=== PATIENT | male | born 1995 | race American Indian/Alaskan Native ===

== ENCOUNTER 2020-08-19 17:29 | Emergency (ER) | payer BC ==
--- NOTE | 2020-08-19 19:35 | XRay Report ---
Left hand-3 views INDICATION: lac. COMPARISON: None. IMPRESSION: Irregular laceration involving the little finger with saw blade injury resulting in a tr ansected fracture line involving the ulnar aspect of the base of the little finger distal phalanx bas e and extending into the head/neck to the level of the mid shaft of the middle phalanx. Again in tota l the sawblade cut injury extends to the mid diaphysis of the middle phalanx. There is considerable surrounding soft tissue swelling with no radiopaque foreign body identified. The distal phalanx is d isplaced volarly and radially. No other injury identified. Signer Name: Andrea Everett MD Signed: 08/19/2020 7:31 PM Workstation Name: [id number]
[2020-08-19] MEDS ORDERED: LIDOCAINE-MPF (1%) 10 MG/1 ML VIAL 5 ML INFILTRATI ONE (19:48)
[2020-08-19] MEDS ORDERED: HYDROcodone/ACETAMINOPHEN 5-325 MG TAB PO ONE (19:48)
[2020-08-19] MEDS ORDERED: SODIUM CHLORIDE 0.9% IRR 500 ML BOTTLE IR ONE (19:48)
[2020-08-19] MEDS ORDERED: BUPIVACAINE/PF (0.5%) 5 MG/1 ML 10 ML VIAL INFILTRATI ONE (19:49)
[2020-08-19] MEDS ORDERED: DIPHtheria,PERTUSSIS(ACELL),TETANUS VACCINE/PF 0.5 ML VIAL IM ONE (19:49)
[2020-08-19 20:37] VITALS: BP 150/79
--- NOTE | 2020-08-19 20:40 | Emergency Department Report ---
<DESHAWN ALBRECHT - Last Filed: 08/19/20 23:21> ED Upper Extremity Inj HPI - General Chief Complaint: Wound/Laceration Stated Complaint: FINGER LAC Time Seen by Provider: 08/19/20 19:08 Source: patient Mode of arrival: Ambulatory Limitations: No Limitations - History of Present Illness Initial Comments: Patient is a 24-year-old male presents emergency room with complaints of a laceration to the left pinky that occurred around 4 PM today. He states that he was at work using a saw when he accidentally cut himself. He states that he has pain in the finger. He states that he does still have sensation. He states initially there was significant bleeding but has since resolved. He denies ever injuring this finger in the past. He denies any numbness or weakness. No past medical history. Allergy to peanut and pet dander. He is unsure of his last tetanus immunization. - Related Data Previous Rx's Medication Instructions Recorded Last Taken Type HYDROcodone/APAP 5-325 [[place] 1 each PO Q6HR PRN #12 tablet 08/19/20 Unknown Rx 5/325] Ibuprofen [Motrin 600 MG tab] 600 mg PO Q8H PRN #20 tablet 08/19/20 Unknown Rx cephALEXin [Keflex] 500 mg PO QID 7 Days #28 capsule 08/19/20 Unknown Rx Allergies Allergy/AdvReac Type Severity Reaction Status Date / Time peanut Allergy Anaphylaxis Verified 08/19/20 19:01 pet dander Allergy Hives Uncoded 08/19/20 19:01 ED Review of Systems Comment: All other systems reviewed and negative ED Past Medical Hx - Past Medical History Previous Medical History?: No - Surgical History Past Surgical History?: No - Social History Smoking Status: Never Smoker Substance Use Type: None - Medications Home Medications: Home Medications Medication Instructions Recorded Confirmed Last Taken Type HYDROcodone/APAP 5-325 [[place] 1 each PO Q6HR PRN #12 tablet 08/19/20 Unknown Rx 5/325] Ibuprofen [Motrin 600 MG tab] 600 mg PO Q8H PRN #20 tablet 08/19/20 Unknown Rx cephALEXin [Keflex] 500 mg PO QID 7 Days #28 capsule 08/19/20 Unknown Rx ED Physical Exam - General Limitations: No Limitations General appearance: alert, in no apparent distress - Head Head exam: Present: atraumatic, normocephalic - Eye Eye exam: Present: normal appearance - ENT ENT exam: Present: mucous membranes moist - Respiratory Respiratory exam: Absent: respiratory distress, accessory muscle use - Back Exam Back exam: Present: other (3 cm deep laceration present to the dorsal surface of the left pinky, there are bony fragments visualized, the DIP is in the flexed position, otherwise patient has full ROM of the rest of the digit, no active bleeding, brisk cap refill, sensation intact, no obvious foreign body) - Neurological Exam Neurological exam: Present: alert, oriented X3 - Psychiatric Psychiatric exam: Present: normal affect, normal mood - Skin Skin exam: Present: warm, dry - Laceration /Wound Repair Left Dorsal Finger Wound Location: upper extremity (dorsal surface left pinky) Wound Length (cm): 4 Wound's Depth, Shape: linear Wound Explored: no foreign body removed Irrigated w/ Saline (ccs): 500 Betadine Prep?: Yes Anesthesia: 1% Lidocaine, 0.5% Sensorcaine Volume Anesthetic (ccs): 8 (4 cc of 1%lidocaine without epi, 4 cc of 0.5% bupivacaine) Wound Debrided: extensive Wound Repaired With: sutures Suture Size/Type: 3:0, proline Number of Sutures: 12 Layer Closure?: No Sterile Dressing Applied?: Yes Progress: Wound irrigated with 500 mL of saline, thoroughly scrubbed with Betadine, no foreign bodies visualized, there are bony fragments present, digital block performed using a 50-50 mixture of 1% lidocaine without epinephrine and 0.5% bupivacaine, for a total of 8 cc, aspirated to make sure not in the vessel, Betadine prep again, sterile drapes applied, sterile gloves worn, 3-0 Prolene used for skin closure, 12 sutures placed, attempted to straighten into anatomical position, patient placed in finger splint by hospital account manager in extension and remained neurovascularly intact, sterile dressing applied by hospital account manager ED Medical Decision Making - Radiology Data Radiology results: report reviewed Ordering Physician: DARRYL SHUKLA Date of Service: 08/19/20 Procedure(s): XR finger(s) 2+V LT Accession Number(s): [id number] cc: DARRYL SHUKLA Fluoro Time In Minutes: Left hand-3 views INDICATION: lac. COMPARISON: None. IMPRESSION: Irregular laceration involving the little finger with saw blade injury resulting in a transected fracture line involving the ulnar aspect of the base of the little finger distal phalanx base and extending into the head/neck to the level of the mid shaft of the middle phalanx. Again in total the sawblade cut injury extends to the mid diaphysis of the middle phalanx. There is considerable surrounding soft tissue swelling with no radiopaque foreign body identified. The distal phalanx is displaced volarly and radially. No other injury identified. Signer Name: Andrea Everett MD Signed: 08/19/2020 7:31 PM Workstation Name: [id number] Transcribed By: MACKENZIE Dictated By: Andrea Everett MD Electronically Authenticated By: Andrea Everett MD Signed Date/Time: 08/19/201930 DD/ 28 TD/TT: Print Cancel ED Disposition Clinical Impression: Open fracture of phalanx of left little finger Qualifiers: Encounter type: initial encounter Phalanx: unspecified phalanx Fracture alignment: displaced Qualified Code(s): S62.607B - Fracture of unspecified phalanx of left little finger, initial encounter for open fracture Disposition: DC-01 TO HOME OR SELFCARE Is pt being admited?: No Does the pt Need Aspirin: No Condition: Stable Instructions: Finger Fracture, Adult Additional Instructions: Please keep area clean, dry, covered. Please do not remove splint. Please follow-up with a hand surgeon. It is very important that you follow-up with a hand surgeon to prevent permanent mobility issues of the left pinky. Please take medication as prescribed. Please take antibiotics to completion. Please do not drive or operate machinery while taking pain medication. Return to emergency room for any new or worsening symptoms. Sutures need to be removed in 10 to 14 days. Prescriptions: cephALEXin [Keflex] 500 mg PO QID 7 Days #28 capsule Ibuprofen [Motrin 600 MG tab] 600 mg PO Q8H PRN #20 tablet PRN Reason: Pain, Moderate (4-6) HYDROcodone/APAP 5-325 [[place] 5/325] 1 each PO Q6HR PRN #12 tablet PRN Reason: Pain , Severe (7-10) Referrals: MELISSA MENDIOLA MD [Referring] - 2-3 Days PRIMARY CAREMD [Primary Care Provider] - 2-3 Days Time of Disposition: 23:27 Print Language: FAROESE <IMEROKSANA C - Last Filed: 08/20/20 00:45> ED Review of Systems ROS: Stated complaint: FINGER LAC Other details as noted in HPI ED Course Vital Signs 08/19/20 08/20/20 19:00 00:10 Temperature 98.1 F Pulse Rate 90 83 Respiratory 16 16 Rate Blood Pressure 150/79 O2 Sat by Pulse 100 100 Oximetry ED Medical Decision Making - Medical Decision Making I did exam finger after wound repair. stressed importance of hand surgeon f/u for possible surgery and possibility of tendon involvement and to monitor for signs of infection (explained). Finger splinted prior to d/c Critical care attestation.: If time is entered above; I have spent that time in minutes in the direct care of this critically ill patient, excluding procedure time.
== END 2020-08-20 00:10 | disposition home or self-care (01) ==
LOC: ED 17:29
DX: S62.607A Fracture of unspecified phalanx of left little finger, initial encounter for closed fracture (principal); Z79.899 Other long term (current) drug therapy; W26.9XXA Contact with unspecified sharp object(s), initial encounter; Y93.89 Activity, other specified; Y92.89 Other specified places as the place of occurrence of the external cause; Y99.8 Other external cause status
CPT/HCPCS: 12042; 73140; 90471; 90715; 96365; 99283; J0690